=== PATIENT | male | born 1925 | race Caucasian/White ===

== ENCOUNTER → 2016-11-23 | Outpatient (CLI) | payer OTHER, MEDICARE ==
[~2016-11-23] MED LIST: ALBUTEROL2.5 MG/0.5 INH; ALBUTEROL2.5 MG/3 M INH; CORDARONE,PACE200 MG PO; COREG 3.1253.125 MG PO; COUMADIN ** IA5 MG PO; COUMADIN **IA7.5 MG PO; COUMADIN 4MG **4 MG PO; DEXTROSE 50%50 ML; DULCOLAX10 MG R; FLOMAX0.4 MG PO; FLONASE 50 MCG/16 GM NOSE; GLUCAGON/GLUCAGE1 MG IM; GLUCOSE4 GM PO; LANTUS (IN100 UNIT/M SUB-Q; LASIX40 MG PO; LEVAQUIN 250 M250 MG PO; LEVEMIR100 UNIT/1 SUB-Q; LIPITOR80 MG PO; MAG-OX-400(241400 MG PO; MIRALAX17 GM PO; NORCO 5-325 MG1 TAB PO; PRAVACHOL20 MG PO; PRAVACHOL40 MG PO; PRILOSEC20 MG PO; PROSCAR5 MG PO; REQUIP0.5 MG PO; SODIUM CHLORIDE10 ML IV; SYMBICORT 16010.2 GM INH; THERA-VITE W/ B1 TAB PO; TYLENOL325 MG PO; VITAMIN D-32000 UNI1 PO; ZESTRIL2.5 MG PO
== END ==
LOC: LJOHN2 11:14
DX: M86.8X7 Other osteomyelitis, ankle and foot (principal)

== ENCOUNTER → 2016-11-25 | Outpatient (CLI) | payer OTHER, MEDICARE | LOC: LJOHN2 13:15 | DX: M86.8X7 Other osteomyelitis, ankle and foot (principal) ==

== ENCOUNTER → 2016-11-26 | Outpatient (CLI) | payer OTHER, MEDICARE ==
[2016-11-26 13:33] LABS: INR - (THERAPEUTIC) 2.8 (0.92-1.07); PROTIME 29.7 SECONDS (9.8-11.4)
== END ==
LOC: LJOHN2 12:52
PROVIDERS: Internal Medicine
DX: M86.8X7 Other osteomyelitis, ankle and foot (principal); I48.91 Unspecified atrial fibrillation

== ENCOUNTER → 2016-11-29 | Outpatient (CLI) | payer OTHER, MEDICARE ==
[2016-11-29 14:27] LABS: BASOPHIL # 0.1 K/uL (0.0-0.2); BASOPHIL % 0.8 %; EOSINOPHIL # 0.2 K/uL (0.0-0.5); EOSINOPHIL % 2.6 %; HEMATOCRIT 38.9 % (33.0-50.0); HEMOGLOBIN 12.7 g/dL (11.0-16.0); IMMATURE GRANULOCYTE % 0.2 %; LYMPHOCYTE # 2.7 K/uL (0.8-4.0); MCH 29.9 pg (27.0-34.0); MCHC 32.6 gm/dL (32.0-36.5); MCV 91.5 fl (83.0-98.0); MONOCYTE # 0.6 K/uL (0.0-1.0); MPV 12.4 fl (9.4-12.4); NEUTROPHIL # (ANC) 4.8 K/uL (1.4-9.0); NEUTROPHIL % 57.4 %; NRBC % 0 /100WBC (0-0.00); PLATELET COUNT 195 K/uL (150-450); RBC 4.25 M/uL (3.50-5.50); WBC 8.3 K/uL (4.0-11.0)
[2016-11-29 14:45] LABS: ANION GAP 15.3 (10.0-19.0); CALCIUM 8.6 mg/dL (8.5-10.5); CREATININE 1.5 mg/dL (0.6-1.3); POTASSIUM 4.3 mMol/L (3.7-5.1)
== END ==
LOC: LJOHN2 14:22
PROVIDERS: Internal Medicine
DX: M86.8X7 Other osteomyelitis, ankle and foot (principal)

== ENCOUNTER → 2016-12-07 | Outpatient (CLI) | payer OTHER, MEDICARE ==
[2016-12-07 10:49] LABS: CREATININE 1.6 mg/dL (0.6-1.3)
== END | disposition disaster alternative care site (69) ==
LOC: LJOHN2 10:26
PROVIDERS: Internal Medicine
DX: M86.8X7 Other osteomyelitis, ankle and foot (principal)